=== PATIENT | female | born 1955 | race Caucasian/White ===

== ENCOUNTER → 2017-12-16 | Outpatient (CLI) | payer BC ==
[~2017-12-16] MED LIST: AMIT25TA PO; DIPH25TA41 PO; ENAL10TA PO; LOVA20TA2 PO
== END | disposition home or self-care (01) ==
LOC: CFH 14:06
PROVIDERS: ATTEND Family Medicine
DX: Z12.31 Encounter for screening mammogram for malignant neoplasm of breast (principal)
CPT/HCPCS: 77063; 77067